=== PATIENT | female | born 1935 | race Caucasian/White ===

== ENCOUNTER → 2023-11-26 12:54 | Outpatient (REF) | payer OTHER, MEDICARE, BC, SELFPAY ==
[2023-11-26 14:02] LABS: Blood Urea Nitrogen 21 mg/dl (7-17); Calcium 8.9 mg/dl (8.4-10.2); Carbon Dioxide 24 mmol/L (22-30); Chloride 106 mmol/L (98-107); Glucose 80 mg/dl (70-99); Potassium 3.6 mmol/L (3.5-5.1); Sodium 139 mmol/L (135-145); eGFR > 60.00
== END ==
LOC: OLABP 12:54
PROVIDERS: ATTENDING PHYSICIAN Student in an Organized Health Care Education/Training Program
DX: N17.9 Acute kidney failure, unspecified (principal); J44.9 Chronic obstructive pulmonary disease, unspecified; I25.10 Atherosclerotic heart disease of native coronary artery without angina pectoris
CPT/HCPCS: 36415; 80048

== ENCOUNTER 2023-12-04 17:08 | Emergency (ER) | payer MEDICARE, BC, SELFPAY ==
[2023-12-04 17:11] VITALS: BP 165/92
[2023-12-04 17:40] LABS: % Basophils 0.4 % (0-2); % Eosinophils 0.6 % (0-6); % Immature Granulocytes 0.2 % (0-0.5); % Lymphocytes 22.1 % (20.5-51.1); % Monocytes 9.7 % (1.7-9.3); Absolute Lymphocytes 1.1 10^3/uL (1.2-3.4); Absolute Monocytes 0.5 10^3/uL (0.1-0.6); Absolute Neutrophils 3.5 10^3/uL (1.4-6.5); Hematocrit 31.9 % (37.0-47.0); Hemoglobin 10.5 g/dL (12.0-16.0); Mean Corp Hgb Conc. 32.9 g/dL (33.0-37.0); Mean Corpuscular Hgb 32.8 pg (27.0-31.0); Mean Corpuscular Volume 99.7 fL (81.0-99.0); Mean Platelet Volume 10.1 fL (7.4-10.4); Nucleated Red Blood Cells % 0 %; Platelet Count 380 10^3/uL (130-400); Red Cell Dist. Width 12.9 % (11.5-14.5); White Blood Cell Count 5.2 10^3/uL (4.8-10.8)
[2023-12-04 17:49] LABS: ALT (SGPT) 16 U/L (0-35); AST (SGOT) 30 U/L (14-36); Albumin 3.9 g/dl (3.5-5.0); Alkaline Phosphatase 53 U/L (38-126); Blood Urea Nitrogen 22 mg/dl (7-17); Calcium 9.6 mg/dl (8.4-10.2); Carbon Dioxide 22 mmol/L (22-30); Chloride 101 mmol/L (98-107); Glucose 122 mg/dl (70-99); Potassium 3.4 mmol/L (3.5-5.1); Sodium 138 mmol/L (135-145); Total Bilirubin 0.7 mg/dl (0.2-1.3); Total Protein 6.6 g/dl (6.3-8.2); eGFR > 60.00
[2023-12-04 17:57] LABS: NT-proBNP 1170 pg/ml
[2023-12-04 18:53] VITALS: BMI 21.8
--- NOTE | 2023-12-04 18:56 | EDRN ---
Loco Hastings PA in room w/pt at this time.
[2023-12-04 18:57] VITALS: BP 142/68
[2023-12-04 19:00] VITALS: BP 144/65
--- NOTE | 2023-12-04 19:06 | ED.GENMED ---
History of Present Illness
General
Chief Complaint: Swelling
Source: patient, family and physician
Time Seen by Provider: 12/04/23 18:54
Travel History
Have you had any contact with someone who has COVID-19?: No
Do you have any symptoms of coronavirus? Fever > 100 degrees, chills, cough, shortness of breath, sore throat, loss of taste or smell, muscle aches, or headache?: No
History of Present Illness
History of Present Illness:
88-year-old female with past medical history of hypertension, hyperlipidemia, previous [place], CHF and circulatory issues, very early dementia presenting to the emergency department at the request of primary care physician after patient was released
from [facility] this past Thursday, had a home telephone conversation with the primary care physician today who felt patient was confused and is having worsening lower extremity edema and advised the patient come to the emergency
department to be further evaluated with concern for possible infection. Patient notes that her home medications were accidentally left at [facility] but she was given pill packs to go home with which she states she has been taking most of the
medication but notes she did not receive all of the medications. Patient is denying any fevers, chills, rigors, headache, visual changes, focal weakness or numbness, abdominal pain, nausea, vomiting, urinary symptoms, URI-like symptoms or any other
concerns. Patient presented to the emergency department with niece who happened to be visiting the patient today from out of state and was at the telephone appointment with the patient. During time of my evaluation the patient's niece does not
feel the patient is confused and states that the patient was able to direct the patient to the hospital without any difficulty and patient appears in her usual state of health presently.
Past History
Past History
ED Past Medical History: CAD, COPD, GERD, HTN, Hypercholesterolemia, [place], Seizures, Hypothyroidism, Psychiatric (Anxiety) and Other (rheumatoid arthritis, kidney stones collar and degenerative joint disease, irritable bowel surgery, Intracranial
bleed, Tremors, NSTEMI, )
ED Past Surgical History: Cardiac (Patient had quadruple bypass surgery, Stents), Cholecystectomy, Urological ( lithotripsy, ) and Other ( partial thyroidectomy, bilateral cataracts, Hernia repair)
Social History
Tobacco: Former smoker
Alcohol: Occasional
Drug: None
Personal: Single
Living: alone
Employment: Retired
Family History
Family History: Negative Early CAD
Review of Systems
Review of Systems
All Other Systems: ROS reviewed and negative except as documented in HPI and ROS
Phy Exam
Physical Exam
Physical Exam:
GENERAL: Alert , in no apparent distress
EYE: conjunctiva clear
NECK: Supple
ENT: o/p clr, mmm.
CARDIAC: Regular rate and rhythm
LUNGS: Clear breath sounds bilaterally, no acute respiratory distress, no wheezes/rales/rhonchi
Abdomen: Soft, nontender, nondistended
NEUROLOGICAL: Alert and oriented
SKIN: Warm and dry, skin intact.
MUSCULOSKELETAL: well perfused. 2+ pitting edema bilateral lower extremities
PSYCH: Normal and appropriate interaction.
Scores
Heart Failure Risk
Heart Failure Risk Score: Not Applicable
Heart Score for Chest Pain Patients
STEMI patient?: Not applicable
Withdrawal Assessment of Alcohol
Withdrawal Assessment Completed?: Not applicable
Course
Orders/Labs/Results
Orders:
Orders
12/04/23 17:31
Complete Blood Count/With Diff Urgent
Comprehensive Metabolic Panel Urgent
NT-proBNP Urgent
12/04/23 19:05
CR Chest - 2 Views Urgent
Comment:
Reason For Exam: reported confusion
12/04/23 19:10
COVID-19 Antigen Urgent
Source: Nasal Swab
12/04/23 20:22
Urinalysis Reflex To Culture Urgent
Date Specimen was Collected: 12/04/23
Time Specimen was Collected: 20:18
12/04/23 21:21
Case Management Consult ONCE
Case Management Consult: VN/Home Care
Comment: Patient is in need of VN and minor home care
Abnormal Lab Results
12/04/23
17:31
RBC 3.20 L 10^6/uL
(4.20-5.40)
Hgb 10.5 L g/dL
(12.0-16.0)
Hct 31.9 L %
(37.0-47.0)
MCV 99.7 H fL
(81.0-99.0)
MCH 32.8 H pg
(27.0-31.0)
MCHC 32.9 L g/dL
(33.0-37.0)
Absolute Lymphs (auto) 1.1 L 10^3/uL
(1.2-3.4)
Monocytes % 9.7 H %
(1.7-9.3)
Potassium 3.4 L mmol/L
(3.5-5.1)
BUN 22 H mg/dl
(7-17)
Glucose 122 H mg/dl
(70-99)
12/04/23 17:31
12/04/23 17:31
Vital Signs
Initial and Last Documented VS:
Initial Vital Signs
Temp Pulse Resp BP Pulse Ox
98.2 F 106 20 165/92 99
12/04/23 17:11 12/04/23 17:11 12/04/23 17:11 12/04/23 17:11 12/04/23 17:11
Last Documented Vital Signs
Temp Pulse Resp BP Pulse Ox
98.2 F 85 16 131/75 100
12/04/23 17:11 12/04/23 20:21 12/04/23 20:21 12/04/23 20:21 12/04/23 20:21
Title Assistant consulted with Physician
Title Assistant consulted with physician?: Yes
Name of Physician Consulted: Lenny
MDM/Problems Addressed
Differential Diagnosis Includes:
I am less concerned for infection given patient appears to be in her usual state of health and is afebrile here, will check urinalysis for UTI as well as chest x-ray for pneumonia although patient does not have any symptoms of either. Electrolyte
disturbance, no concern for acute neurological issues, questionable exacerbation of dementia
MDM/Problems Addressed:
88-year-old female presenting the emergency department at request of primary care physician for evaluation of what her primary care physician believed to be an acute change in mental status and confusion. Patient also notes bilateral lower
extremity edema. She does note she has been taking her Lasix as it is prescribed and the niece was able to confirm that patient has had this medication at home. Patient is very well-appearing here, answering questions appropriately a and there is
no apparent confusion on my exam. She is hemodynamically stable, labs were initiated in triage and there is no leukocytosis, a mild chronic anemia is noted and patient's chemistry is otherwise reassuring. Mild hypokalemia. Patient's BNP is
elevated but certainly within patient's usual range. Will add on a urinalysis and chest x-ray. Will contact patient's primary care physician for ultimate disposition. Patient unable to be seen by case management due to time of night she presented
to the emergency department but will still place a case management consult so patient can be either evaluated first thing in the morning if she is to be admitted or they would be able to contact the patient at home to help facilitate continued care.
*Radiology
Radiology exam reviewed: radiology read reviewed
*Pulse Oximetry
Patient hypoxic: no
*Critical Care Note
Total Time (30-74mins, 75-104mins- exclusive of procedures): Not Applicable
Patient Management
Discussion with other providers: PCP
Escalation/DeEscalation of care consider admission/obs:
Patient's urine and chest x-ray are unremarkable. Patient remains well and without any current concerns. I notified primary care physician of the ER workup and they are in agreement that patient can be safely discharged home. I did notify our
case management team to contact the patient and family in the morning to help facilitate outpatient home care with visiting nurse.
ED Attending Note
-
Portions of this chart may have been created with voice recognition software.� Occasional wrong word or��sound alike� substitutions may have occurred due to the inherent limitations of voice recognition software.
Discharge Plan
Departure
Patient Disposition: Home (Routine Discharge)
Date of Disposition: 12/04/23
Time of Disposition: 21:21
Patient with high blood pressure during this ER visit?: Yes
Discharge Problem:
Edema
Instructions: Dependent Edema (DC)
Prescriptions:
No Action
aspirin 81 MG tablet,delayed release (DR/EC)
81 mg PO HS
levothyroxine 75 MCG tablet
75 mcg PO DAILY
rosuvastatin 10 MG tablet
20 mg PO HS
Combigan Eye Drops
1 drp BOTH EYES BID
Tylenol :
650 mg PO PRN PRN (Reason: pain)
furosemide 40 MG tablet
60 mg PO DAILY
potassium chloride [Klor-Con M20] 20 MEQ tablet,ER particles/crystals
1 tab PO .Q48HRS
Effient
10 mg PO DAILY
Probiotic
1 tab PO DAILY
Vitamin D3
2,000 units PO DAILY
Zantac
300 mg PO HS
isosorbide mononitrate 30 MG tablet extended release 24 hr
30 mg PO DAILY Qty: 30 6RF
metoprolol tartrate 25 MG tablet
12.5 mg PO BID Qty: 0 0RF
nitroglycerin 0.4 MG tablet, sublingual
0.4 mg sublingual [id number] PRN (Reason: chest pain ) Qty: 30 0RF
pantoprazole 40 MG tablet,delayed release (DR/EC)
40 mg PO DAILY
ranolazine 500 MG tablet extended release 12 hr
500 mg PO BID
lorazepam 0.5 MG tablet
0.5 mg PO HSPRN PRN (Reason: insomnia) Qty: 0 0RF
docusate sodium 100 MG capsule
100 mg PO BID Qty: 0 0RF
levetiracetam 500 MG tablet
500 mg PO BID Qty: 60 0RF
prednisone 20 mg tablet
40 mg PO DAILY Qty: 8 0RF
spironolactone 25 mg tablet
25 mg PO DAILY Qty: 7 0RF
Referrals:
Julieta Mcdowell DO [Family Provider] -
Interventions
Interventions:
*Risk Screen - Suicide Last Done: 12/04/23 18:54
*General Assessment Last Done: 12/04/23 18:53
*Neglect/Abuse Screening Last Done: 12/04/23 18:54
ED- Fall Risk Assessment Last Done: 12/04/23 18:54
*ED COVID-19 Vaccine History Last Done: 12/04/23 18:53
*Nursing Disposition Last Done: 12/04/23 21:46
ED- Cardiac Assessment Last Done: 12/04/23 19:00
ED- Pulmonary Assessment Last Done: 12/04/23 19:00
ED-Skin Assessment Last Done: 12/04/23 19:00
Discharge Date and Time
Discharge Date/Time: 12/04/23 21:47
--- NOTE | 2023-12-04 19:23 | EDRN ---
Pt is aware a urine spec is needed. Pt is very lucid at this time and displays no confusion. Pt states she was discharged from SNF w/out her medications and therefore her legs became this edematous.
[2023-12-04 19:53] LABS: COVID-19 Antigen Negative (Negative)
[2023-12-04 20:21] VITALS: BP 131/75
[2023-12-04 20:30] LABS: Urine Albumin Negative (Neg - Trace); Urine Bilirubin Negative (Negative); Urine Character Clear (Clear); Urine Color Yellow; Urine Glucose Negative (Negative); Urine Ketone Negative (Negative); Urine Leukocyte Negative (Negative); Urine Nitrite Negative (Negative); Urine Occult Blood Negative (Negative); Urine Urobilinogen Negative (Neg - 1+); Urine pH 6.5 (5.0-9.0)
--- NOTE | 2023-12-05 09:28 | CM ---
Addendum entered by Kennedi Petersen RN 12/05/23 09:33:
CM spoke with patient's niece Edith who is in agreement with home care. She is requesting that home care call patient's other niece Yuridia to assist with visits.
CM update [facility] with nieces information.
Original Note:
CM left message for patient updating regarding discharge planning. CM sent referral to [facility].
== END 2023-12-04 21:47 | disposition home or self-care (01) ==
LOC: EMR 17:08
PROVIDERS: Emergency Medicine; Physician Assistant Medical; EMERGENCY PHYSICIAN Emergency Medicine; FAMILY PHYSICIAN Student in an Organized Health Care Education/Training Program
DX: R60.0 Localized edema (principal); E87.6 Hypokalemia; Z11.52 Encounter for screening for COVID-19; I11.0 Hypertensive heart disease with heart failure; I50.9 Heart failure, unspecified; E78.00 Pure hypercholesterolemia, unspecified; E03.9 Hypothyroidism, unspecified; M06.9 Rheumatoid arthritis, unspecified; F41.9 Anxiety disorder, unspecified; K21.9 Gastro-esophageal reflux disease without esophagitis; J44.9 Chronic obstructive pulmonary disease, unspecified; I25.10 Atherosclerotic heart disease of native coronary artery without angina pectoris; F03.94 Unspecified dementia, unspecified severity, with anxiety; M19.90 Unspecified osteoarthritis, unspecified site; I25.2 Old myocardial infarction; Z95.1 Presence of aortocoronary bypass graft; Z95.5 Presence of coronary angioplasty implant and graft; Z87.442 Personal history of urinary calculi; Z87.891 Personal history of nicotine dependence; Z88.8 Allergy status to other drugs, medicaments and biological substances; Z91.011 Allergy to milk products
CPT/HCPCS: 99283; 71046; 80053; 81003; 83880; 85025; 87811

== ENCOUNTER → 2024-03-04 11:43 | Outpatient (REF) | payer MEDICARE, BC, SELFPAY | LOC: RAD 11:43 | PROVIDERS: ATTENDING PHYSICIAN Student in an Organized Health Care Education/Training Program | DX: R63.4 Abnormal weight loss (principal) | CPT/HCPCS: 71260; 74177; Q9967 ==

== ENCOUNTER → 2024-03-10 15:27 | Outpatient (REF) | payer MEDICARE, BC, SELFPAY ==
[2024-03-10 15:55] LABS: Urine Albumin Trace (Neg - Trace); Urine Bilirubin Negative (Negative); Urine Character Clear (Clear); Urine Color Straw; Urine Glucose Negative (Negative); Urine Ketone Negative (Negative); Urine Leukocyte Negative (Negative); Urine Nitrite Negative (Negative); Urine Occult Blood 4+ (Negative); Urine Urobilinogen Negative (Neg - 1+)
[2024-03-10 16:09] LABS: Urine Squamous Cell 0-2 /LPF (Few); Urine White Cell 0-2 /HPF (0-5)
[2024-03-10 16:10] LABS: Urine Bacteria Few (Negative)
== END ==
LOC: REG 15:27
PROVIDERS: ATTENDING PHYSICIAN Student in an Organized Health Care Education/Training Program
DX: R93.89 Abnormal findings on diagnostic imaging of other specified body structures (principal)
CPT/HCPCS: 81003; 81015

== ENCOUNTER → 2024-03-11 14:39 | Outpatient (REF) | payer MEDICARE, BC, SELFPAY | LOC: RAD 14:39 | PROVIDERS: ATTENDING PHYSICIAN Student in an Organized Health Care Education/Training Program; REFERRING PHYSICIAN Internal Medicine Cardiovascular Disease | DX: R23.8 Other skin changes (principal) | CPT/HCPCS: 93922; 93925 ==